=== PATIENT | male | born 1995 | race Caucasian/White ===

== ENCOUNTER 2021-06-20 06:58 | Emergency (ER) | payer BC ==
[~2021-06-20] VITALS: Ht 185.4 cm; Wt 69.4 kg
== END 2021-06-20 09:40 | disposition home or self-care (01) ==
LOC: ED 06:58
DX: S93.401A Sprain of unspecified ligament of right ankle, initial encounter (principal); W18.39XA Other fall on same level, initial encounter; Y93.89 Activity, other specified; Y92.89 Other specified places as the place of occurrence of the external cause; Y99.8 Other external cause status

== ENCOUNTER 2024-12-15 06:51 | Emergency (ER) | payer SELFPAY ==
[~2024-12-15] VITALS: Ht 182.8 cm; Wt 76.2 kg
[2024-12-15] MEDS ORDERED: Ondansetron Hydrochloride 4 MG TAB PO ONE (07:50)
[2024-12-15 08:10] LABS: BASO # 0.0 10*3/uL (0.0-0.1); BASO % 0.7 % (0.0-1.0); EOS # 0.1 10*3/uL (0.0-0.4); EOS % 1.2 % (1.0-4.0); MEAN CELL VOLUME 88.7 fl (80.0-94.0); MEAN CORPUSCULAR HGB 30.0 pg (27.0-31.0); MEAN PLATELET VOLUME 12.4 fl (9.6-12.3); MONO # 0.8 10*3/uL (0.1-1.0); MONO % 18.8 % (3.0-9.0); NEUT # 2.6 10*3/uL (2.3-7.9); NEUT % 61.7 % (47.0-73.0); NUCLEATED RED BLOOD CELL 0.0 % (0.0-0.0); NUCLEATED RED BLOOD CELL 0.0 10*3/uL (0.0-0.0); PLATELET COUNT AUTOMATED 205 10*3/uL (130-400); RED CELL DISTRI WIDTH 12.2 % (0-14.5)
[2024-12-15 08:31] LABS: BUN 11 mg/dl (9-23); SGPT/ALT 18 U/L (5-49)
[2024-12-15] MEDS ORDERED: Ondansetron4 MG PO (08:50)
== END 2024-12-15 09:05 | disposition home or self-care (01) ==
LOC: ED 06:51
PROVIDERS: Student in an Organized Health Care Education/Training Program
DX: R11.2 Nausea with vomiting, unspecified (principal); R19.7 Diarrhea, unspecified; K02.9 Dental caries, unspecified; R10.13 Epigastric pain